=== PATIENT | male | born 1955 | race Caucasian/White ===

== ENCOUNTER 2017-05-08 14:01 | Observation (INO) | payer OTHER ==
[~2017-05-08] VITALS: Ht 182.9 cm; Wt 111.7 kg
[~2017-05-08 14:01] MED LIST: Levaquin PO; PAROXETINE HCL20 MG; PAXIL10 MG PO; PAXIL20 MG PO; Paxil PO; Percocet 5/325,Endoc PO; oxyCODONE PO
[2017-05-08 14:37] LABS: HEMATOCRIT 43.6 % (38.0-50.0); MCH 29.7 PG (29.0-34.0); MCHC 33.9 G/DL (30.0-36.0); MCV 87.4 FL (86-99); MEAN PLAT.VOLUME 10.1 uM^3 (9.0-12.4); PLATELET COUNT 186 K/uL (156-360); RBC DIS.WIDTH-CV 12.8 % (11.8-14.6); RBC DIS.WIDTH-SD 41.1 % (39-53); RED BLOOD COUNT 4.99 M/uL (4.00-5.50); WHITE BLOOD COUNT 6.6 K/uL (4.1-10.2)
[2017-05-08 14:48] LABS: CHLORIDE 109 mEq/L (99-109); POTASSIUM 3.4 mEq/L (3.7-5.4); SODIUM 143 mEq/L (136-147)
[2017-05-08 14:50] LABS: GLUCOSE 117 mg/dL (70-99)
[2017-05-08 14:51] LABS: ANION GAP 15 MEQ/L (2-14)
[2017-05-08 14:54] LABS: GFR ESTIMATE (CALCULATED) > 59 mL/min/
[2017-05-08 14:55] LABS: UREA NITROGEN (BUN) 15 mg/dL (9-23)
[2017-05-08 15:01] LABS: TROP-I INTERPRETATION NEGATIVE; TROPONIN-I < 0.01 ng/mL (0.0-0.30)
[2017-05-08 18:09] LABS: HDL CHOLESTEROL 37 MG/DL (Desirable>=40); LDL CHOLESTEROL 100 mg/dL (Desirable<100); NON-HDL CHOLESTEROL 122 mg/dL (Desirable<160); SAMPLE HEMOLYSIS CHECK 0; SAMPLE ICTERIC CHECK 0; SAMPLE LIPEMIA CHECK 0; TOTAL CHOLESTEROL 159 mg/dL (Desirable<200); TRIGLYCERIDES 110 MG/DL (Normal: <150)
[2017-05-08] MEDS ORDERED: RABEPRAZOLE SOD20 MG PO (18:37)
[2017-05-08] MEDS ORDERED: PAROXETINE HCL20 MG PO (18:42)
[2017-05-08] MEDS ORDERED: CLARITIN,ALAVAR10 MG PO (18:43)
[2017-05-08] MEDS ORDERED: ONE DAILY FOR1 EAC2 PO (18:44)
[2017-05-08 19:30] VITALS: BP 166/86
[2017-05-08 20:25] LABS: TROP-I INTERPRETATION NEGATIVE; TROPONIN-I < 0.01 ng/mL (0.0-0.30)
[2017-05-08 23:43] VITALS: BP 121/59
[2017-05-09 02:25] LABS: TROP-I INTERPRETATION NEGATIVE; TROPONIN-I < 0.01 ng/mL (0.0-0.30)
[2017-05-09 03:21] VITALS: BP 81/48
[2017-05-09 03:26] VITALS: BP 93/52
[2017-05-09 07:20] VITALS: BP 124/58
[2017-05-09 12:23] VITALS: BP 157/72
[2017-05-09] MEDS ORDERED: ASPIR-LOW81 MG PO (14:18)
[2017-05-10 17:33] LABS: Estimated Average Glucose 126 mg/dL (70-123)
== END 2017-05-09 15:00 | disposition home or self-care (01) ==
LOC: EME 14:01 → EDOF 16:02 → 5WEST 16:02 → ENRESERV 16:08 → 5WEST 19:11 → ENPENDDIS 05-09 → 5WEST 05-09 15:00
PROVIDERS: Emergency Medicine; Internal Medicine
DX: R07.9 Chest pain, unspecified (principal); R06.09 Other forms of dyspnea; R94.31 Abnormal electrocardiogram [ECG] [EKG]; F41.9 Anxiety disorder, unspecified; E87.6 Hypokalemia; I45.19 Other right bundle-branch block; R42 Dizziness and giddiness; R11.0 Nausea; Z79.82 Long term (current) use of aspirin; Z87.19 Personal history of other diseases of the digestive system; F32.9 Major depressive disorder, single episode, unspecified
CPT/HCPCS: 71020; 80048; 80061; 83036; 84484; 85027; 85379; 93005; 99281; 99285; G0378; J1885; J2060; J2270; J7030

== ENCOUNTER 2017-09-20 15:01 | Emergency (ER) | payer OTHER ==
[~2017-09-20] VITALS: Ht 182.9 cm; Wt 106.2 kg
[~2017-09-20 15:01] MED LIST changes: +ASPIR-LOW81 MG PO; +CLARITIN,ALAVAR10 MG PO; +ONE DAILY FOR1 EAC2 PO; +PAROXETINE HCL20 MG PO; +RABEPRAZOLE SOD20 MG PO
[2017-09-20] MEDS ORDERED: CLONIDINE HCL0.1 MG PO (18:27)
[2017-09-20] MEDS ORDERED: TRAZODONE HCL50 MG PO (18:27)
[2017-09-20 18:37] VITALS: BP 155/87
== END 2017-09-20 18:45 | disposition home or self-care (01) ==
LOC: EME 15:01 → RME 15:01
DX: F11.23 Opioid dependence with withdrawal (principal); R45.1 Restlessness and agitation; R00.2 Palpitations; R06.02 Shortness of breath; Z63.4 Disappearance and death of family member; G89.29 Other chronic pain; F41.9 Anxiety disorder, unspecified
CPT/HCPCS: 99281; 99284

== ENCOUNTER 2017-09-20 23:55 | Emergency (ER) | payer OTHER ==
[~2017-09-20] VITALS: Ht 172.7 cm; Wt 106.8 kg
[~2017-09-20 23:55] MED LIST changes: +CLONIDINE HCL0.1 MG PO; +TRAZODONE HCL50 MG PO
[2017-09-21 00:19] VITALS: BP 134/80
== END 2017-09-21 03:03 | disposition left against medical advice (07) ==
LOC: EME 23:55
DX: M62.838 Other muscle spasm (principal); R41.82 Altered mental status, unspecified; Z53.21 Procedure and treatment not carried out due to patient leaving prior to being seen by health care provider